=== PATIENT | female | born 1965 | race Hispanic/Latino ===

== ENCOUNTER → 2019-09-18 | Outpatient (CLI) | payer OTHER ==
--- NOTE | 2019-09-18 14:29 | Diagnostic Imaging Report ---
TECHNIQUE: Magnetic resonance imaging of the RIGHT KNEE was performed WITHOUT injected contrast. HISTORY: Right knee pain COMPARISON: None available. FINDINGS: LIGAMENTS AND TENDONS: ACL: Intact PCL: Intact Collateral ligaments: Intact Iliotibial band: Unremarkable Popliteal tendon: Intact Extensor mechanism: Intact JOINT: Menisci: Medial: Degenerative signal without discrete tear Lateral: Intact Articular Cartilage: Medial Compartment: Diffuse partial-thickness cartilage loss Lateral Compartment: No focal defect. Patellofemoral Compartment: Diffuse partial-thickness cartilage loss Joint Fluid: Moderate joint effusion. BONE: No focal or infiltrative bone marrow replacing abnormality. No acute fracture. SOFT TISSUES: Otherwise, unremarkable. IMPRESSION: Medial meniscus degeneration without discrete tear. Medial tibiofemoral and patellofemoral compartment partial-thickness cartilage loss. Moderate joint effusion Signed by: Dr. Harvey Dominguez M.D. on 09/18/2019 2:25 PM
== END ==
LOC: MRI 13:25
PROVIDERS: ATTEND Specialist
DX: S83.241A Other tear of medial meniscus, current injury, right knee, initial encounter (principal)

== ENCOUNTER 2019-10-22 13:52 | Outpatient (RCR) | payer OTHER ==
[~2019-10-22 13:52] MED LIST: ACETAMINOPHEN/CODEINE 300MG - 30MG TAB ONE
== END 2019-10-23 ==
LOC: PT 13:52
PROVIDERS: ATTEND Specialist
DX: M17.11 Unilateral primary osteoarthritis, right knee (principal); M25.561 Pain in right knee; M25.661 Stiffness of right knee, not elsewhere classified; M62.81 Muscle weakness (generalized); R26.2 Difficulty in walking, not elsewhere classified

== ENCOUNTER 2019-10-31 14:00 | Outpatient (RCR) | payer OTHER | END 2019-11-23 | LOC: PT 14:00 | PROVIDERS: ATTEND Specialist | DX: M17.11 Unilateral primary osteoarthritis, right knee (principal) | CPT/HCPCS: 97139 ==